=== PATIENT | male | born 1990 | race African-American/Black ===

== ENCOUNTER 2018-04-07 11:28 | Emergency (ER) | payer BC ==
[2018-04-07 13:06] LABS: ADD MAN DIFF? NO
[2018-04-07 13:09] LABS: BASOPHILS % 0.4 % (0.0-2.0); EOSINOPHILS % 0.4 % (0.0-7.0); HEMATOCRIT 41.4 % (42.0-52.0); HEMOGLOBIN 13.5 g/dl (14.0-18.0); LYMPHOCYTES # 1.6 10^3/ul (0.8-2.9); LYMPHOCYTES % 23.8 % (15.0-51.0); MEAN CORPUSCULAR HEMOGLOBIN 30.1 pg (29.0-33.0); MEAN CORPUSCULAR HGB CONC 32.6 g/dl (32.0-37.0); MEAN CORPUSCULAR VOLUME 92.4 fl (82.0-101.0); MEAN PLATELET VOLUME 10.5 fl (7.4-10.4); MONOCYTE # 0.3 10^3/ul (0.3-0.9); NEUTROPHIL # 4.8 10^3/ul (1.6-7.5); NEUTROPHILS % 70.1 % (39.0-77.0); PLATELET COUNT 225 10^3/UL (140-415); RED BLOOD COUNT 4.48 10^6/ul (4.70-6.10); RED CELL DISTRIBUTION WIDTH 10.9 % (11.5-14.5)
[2018-04-07 13:09] LABS: WHITE BLOOD COUNT 6.8 10^3/ul (4.8-10.8)
[2018-04-07 13:30] LABS: ANION GAP 16 (8-16); BLOOD UREA NITROGEN 21 mg/dl (7-20); CALCIUM 9.5 mg/dl (8.4-10.2); CARBON DIOXIDE 27 mmol/L (21-31); CHLORIDE 99 mmol/L (97-110); CREATININE 1.07 mg/dl (0.61-1.24); GLUCOSE 83 mg/dl (70-220); SODIUM 138 mmol/L (135-144)
[2018-04-07 13:41] LABS: TROPONIN-I < 0.012 ng/ml (0.000-0.120)
== END 2018-04-07 14:20 | disposition home or self-care (01) ==
LOC: FTE 11:28
DX: R20.2 Paresthesia of skin (principal); R07.9 Chest pain, unspecified
CPT/HCPCS: 36415; 71045; 80048; 84484; 85025; 93005; 99285-25

== ENCOUNTER 2018-10-21 03:43 | Emergency (ER) | payer BC ==
[2018-10-21] MEDS ORDERED: KETOROLAC 30 MG INJ IM (04:03)
[2018-10-21] MEDS: IBUPROFEN 800 MG TAB PO (04:24)
== END 2018-10-21 05:25 | disposition home or self-care (01) ==
LOC: FTE 03:43
DX: S99.912A Unspecified injury of left ankle, initial encounter (principal); W18.49XA Other slipping, tripping and stumbling without falling, initial encounter; Y92.9 Unspecified place or not applicable
CPT/HCPCS: 73610; 73630-LT; 99283-25